=== PATIENT | female | born 1960 | race Caucasian/White ===

== ENCOUNTER → 2020-08-22 | Outpatient (CLI) | payer OTHER ==
[~2020-08-22] MED LIST: CALCIUM500 MG PO; CLARITIN10 M3 PO; DAILY MULTIPLE1 EACH PO; FLONASE 0.05%50 MCG NARES; LUNESTA3 MG PO; NAPROSYN500 MG PO; OSTEO BI-FLEX1 EAC2 PO
== END ==
LOC: LAB 12:42
PROVIDERS: ATTEND Student in an Organized Health Care Education/Training Program
DX: Z01.812 Encounter for preprocedural laboratory examination (principal); Z20.828 Contact with and (suspected) exposure to other viral communicable diseases

== ENCOUNTER 2020-08-26 06:35 | Inpatient (IN) | payer OTHER ==
[2020-08-22 11:47] LABS: HEMATOCRIT 44.2 % (37.0-47.0); HEMOGLOBIN 14.6 gm/dL (12.0-15.0); MCH 29.6 pg (26.0-34.0); MCV 89.7 fL (80.0-100.0); RBC 4.92 mil/uL (4.20-5.00); RDW 12.2 % (10.5-14.5); WBC 4.7 thou/uL (4.0-11.0)
[2020-08-22 11:48] LABS: URINE BILIRUBIN NEGATIVE (Negative); URINE BLOOD TRACE (Negative); URINE CLARITY CLEAR; URINE COLOR YELLOW; URINE GLUCOSE-RANDOM* NEGATIVE (Negative); URINE KETONES NEGATIVE (Negative); URINE LEUKOCYTES-REFLEX TRACE (Negative); URINE NITRITE-REFLEX NEGATIVE (Negative); URINE PROTEIN (DIPSTICK) NEGATIVE (Negative); URINE SPECIFIC GRAVITY >= 1.030 (1.005-1.035); URINE UROBILINOGEN 0.2 E.U./dl (0.2-1.0)
[2020-08-22 11:53] LABS: ALBUMIN 4.4 g/dL (3.4-5.0); CALCIUM 9.6 mg/dL (8.5-10.1); POTASSIUM 4.7 mmol/L (3.5-5.1)
[2020-08-22 11:56] LABS: PROTIME 10.2 Seconds (9.3-11.4)
[~2020-08-26] VITALS: Ht 160 cm; Wt 72.6 kg
[2020-08-26 08:13] VITALS: BP 153/85
--- NOTE | 2020-08-26 12:47 | NUR ---
ASSESSMENT: CM REVIEWED CHART AND SPOKE WITH PATIENT. PT IS ALERT AND ORIENTED X4. PT IS S/P RIGHT NICK. PT REPORTS THAT SHE LIVES IN A [place]PL[place] LEVEL HOME WITH HER . PT REPORTS SHE HAS A WALKER AT HOME [employer] [employer]. PT STATES THAT SHE ALREADY HAS OUTPATIENT THERAPY ARRANGED FOR TUESDAY AT [facility]. CM DISCUSSED ROLE. PT REPORTS SHE DOES NOT ANTICIPATE HAVING ANY NEEDS FROM CM PRIOR TO DISCHARGE. PT WILL CONTINUE TO WORK WITH THERAPY. CM WILL CONTINUE TO FOLLOW TO ASSIST NEEDED.
[2020-08-26 12:50] VITALS: BP 135/71
[2020-08-26 13:20] VITALS: BP 131/66
--- NOTE | 2020-08-26 14:11 | NUR ---
PATIENT ADMITTED FROM OR WITH RIGHT TOTAL HIP ARTHROPLASTY, DILLON DRESSING TO RIGHT HIP AREA, ICE PACK TO RIGHT HIP, SCD'S. PATIENT C/O PAIN WITH RIGHT HIP AREA 3, HYDROCODONE 1 TABLET GIVEN DURING ADMISSION. PATIENT HAS LEFT HAND IV IN PLACE, IV FLUIDS STARTED AT 100C/HR. ABDUCTOR PILLOW IN PLACE, HIP PRECAUTIONS IMPLEMENTED. VSS. REPORT GIVEN TO LURDES/CLARA. ADMISSION COMPLETED.
[2020-08-26 16:15] VITALS: BP 121/61
[2020-08-26 19:02] VITALS: BP 113/72
--- NOTE | 2020-08-27 01:54 | NUR ---
R HIP WITH DILLON DRSG INTACT.PT PREFERS TO USE REGULAR PILLOW INSTEAD OF ABDUCTOR PILLOW. GOOD CSM TO R FOOT. AFEBRILE. PAIN MANAGED BY NORCO.ICE ANALISA IN USE.GETS UP WITH SBA TO THE BSC.CALLS APPROPRIATELY.
[2020-08-27 04:29] VITALS: BP 113/56
[2020-08-27 06:35] LABS: HEMATOCRIT 34.5 % (37.0-47.0); HEMOGLOBIN 11.5 gm/dL (12.0-15.0); MCHC 33.4 g/dL (28.0-37.0); MCV 89.9 fL (80.0-100.0); RBC 3.84 mil/uL (4.20-5.00); RDW 12.1 % (10.5-14.5); WBC 10.7 thou/uL (4.0-11.0)
[2020-08-27 07:45] VITALS: BP 132/70
--- NOTE | 2020-08-27 08:16 | O ---
[facility] [place] [address] OPERATIVE REPORT Name: PAULINA BRUNSON Room #: 444-P ADM IN M.R.#: [id number] Admission: 08/26/20 Attend Phys: Chilango Kennedy MD Discharge: Date of : 56 Report #: [id number] THIS REPORT FOR: cc: Virginia Duff,Virginia Small,Chilnago Oconnor MD ~ CC: Virginia Kennedy DATE OF SERVICE: 08/26/2020 PREOPERATIVE DIAGNOSIS: Right hip osteoarthritis. POSTOPERATIVE DIAGNOSIS: Right hip osteoarthritis. PROCEDURE: Right total hip arthroplasty. SURGEON: Chilango Kennedy MD DISH MAKER: Merlyn Khanna PA-C INDICATIONS FOR DISH MAKER: Throughout the case, extensive retraction and manipulation of the hip including dislocation and reduction was required. This was afforded to me by my pharmacy technician assistant. ANESTHESIA: LMA. IMPLANTS: [employer] size 13 high offset Synergy press-fit stem, a size 52 R3 acetabular cup with one acetabular screw and a size 36, -3 Oxinium head. We also used an Arthrex FiberTape for prophylactic femur fixation. ESTIMATED BLOOD LOSS: 100 mL. COMPLICATIONS: None. SPECIMENS: None. CONDITION UPON LEAVING THE OPERATING ROOM: Stable. INDICATIONS FOR PROCEDURE: The patient is a 60-year-old female with severe right hip osteoarthritis. She had failed conservative measures for this and after discussion with her, she elected for right total hip arthroplasty. DESCRIPTION OF PROCEDURE: Risks, benefits, alternatives, and complications were discussed in detail with the patient including but not limited to risk of anesthesia, risk of damage to nerves, arteries, blood vessels, risk for [facility] [address] [place] [address] OPERATIVE REPORT Name: PAULINA BRUNSON Danae Room #: 444-P ADM IN M.R.#: [id number] Admission: 08/26/20 Attend Phys: Chilango Kennedy MD Discharge: Date of : 56 Report #: [id number] infection, bleeding, risk for continued hip pain, leg length discrepancy, instability and need for reoperation. Informed consent was obtained from the patient. Right hip was appropriately marked in the preoperative holding area. IV clindamycin was given for preoperative antibiotics. She was brought to the operating room and placed in supine position on operating room table. LMA anesthesia was induced without complications. She was then placed in the left lateral decubitus position with the right hip uppermost. Right hip and lower extremity were prepped and draped in normal sterile fashion. Timeout was performed properly identifying the patient and procedure as well as the instrumentation and implants. All in the operating room were in agreement. Standard posterior approach to the hip was made with 10 blade through the skin. Dissection was taken down to the fascia with Bovie cautery. Keith elevator was used to clean off the fascia and fresh #10 blade was used to make a fascial incision. This was taken proximally and distally with curved Mata scissor. Charnley retractor was placed. Trochanteric bursa was taken down with Bovie cautery. Piriformis tendon was identified, tagged and taken down with Bovie. Short external rotators were also taken down with Bovie cautery. Capsulotomy was made and capsule ends were tagged for later repair. Hip was dislocated. There was extensive osteoarthritic change of the femoral head. Femoral neck cut was made 1 cm proximal to lesser trochanter based on preoperative templating and the femoral head was removed. Deep acetabular retractors were placed. Labrum was removed sharply. Pulvinar was removed with Bovie cautery. Acetabulum was then sequentially reamed up to a size 53, at which point, there was excellent bleeding cancellous bone. A size 51 trial cup was placed and found to have a good fit. Final size 52 R3 acetabular cup was placed and seated. One acetabular screw was placed for backup fixation and a polyethylene liner for a 36 head was placed. Attention was then turned to the femur. An Arthrex FiberTape was then placed around the proximal femur for prophylactic fixation and the femur was reamed and broached up to a size 13, at which point, the size 13 broach was stable, was trialed with a high offset neck and a 36, +0 head. Hip was reduced, taken through range of motion, found to be stable, found to have equal leg lengths. Hip was dislocated and broach was removed. A final size 13 high offset Synergy press-fit stem was placed. This did not seat quite as far as the broach and so it was trialed with a 36, -3 head. Hip was reduced, taken through range of motion, found to be stable, found to have equal leg lengths. Hip was dislocated and the trial head was removed and final size 36, -3 Oxinium head was placed. Hip was reduced, taken through range of motion, found to be stable, found to have equal leg lengths. The hip was thoroughly irrigated with normal saline. Periarticular injection consisting of morphine, ropivacaine, epinephrine and Toradol was placed around the hip joint capsule. A gram of vancomycin was placed deep in the joint. The fascia was closed with 0 Vicryl, skin was closed with 2-0 Vicryl, 3-0 Monocryl, Dermabond and a DILLON [address] [address] OPERATIVE REPORT Name: PAULINA BRUNSON Room #: 444-P [facility] IN .R.#: [id number] Admission: 08/26/20 Attend Phys: Chilango Kennedy MD Discharge: Date of : 56 Report #: [id number] dressing was applied. The patient tolerated this procedure well and went to recovery room under care of anesthesia postoperatively. <ELECTRONICALLY SIGNED> By: Chilango Kennedy MD 08/27/20 0816 [id number] Chilango Kennedy MD /nt
--- NOTE | 2020-08-27 12:38 | NUR ---
ASSUMED CARE AT 0700. PT IS A&O X4. FALL PRECAUTION. CALL LIGHT WITHIN REACH. REGULAR DIET. O2 AT 2.0 L. PT COMPLAINS OF PAIN ON RIGHT HIP AND RIGHT THIGH AND WAS GIVEN HYDROCODONE. ICE PACK IS ON RIGHT THIGH AND PT STATES THAT BOTH COMBINATION IS VERY HELPFUL. IV ON LEFT HAND IS INTACT AND SHOWS NO SIGNS OF REDNESS OR SWELLING. VSS. ABDUCTOR PILLOW IS BETWEEN HER LEGS WHILE ON BED. DILLON DRESSING IS INTACT. SCD/PRATIMA HOSE ARE IN PLACE.
[2020-08-27 13:57] VITALS: BP 132/70
== END 2020-08-27 15:00 | disposition home or self-care (01) | DRG 470 ==
LOC: PRE → TBA 06:35 → PRE 08:44 → 4S 11:47 → PRE 12:20 → 4S 08-27 15:00
PROVIDERS: ADMIT Orthopaedic Surgery; ATTEND Orthopaedic Surgery
PROC: 0SR90JA Replacement of Right Hip Joint with Synthetic Substitute, Uncemented, Open Approach (ICD-10-PCS; principal; 2020-08-26)
DX: M16.11 Unilateral primary osteoarthritis, right hip (principal); Z88.1 Allergy status to other antibiotic agents; Z91.040 Latex allergy status; Z79.899 Other long term (current) drug therapy
CPT/HCPCS: 10102; 50010; 50101; 50382; 50414; 53000; 53078; 53368; 54118; 56524; 56527; 56528; 56530; 57095; 57103; 62110; 62900; 70005